=== PATIENT | male | born 1985 | race Hispanic/Latino ===

== ENCOUNTER 2017-08-16 16:27 | Observation (INO) | payer OTHER, SELFPAY ==
[2017-08-16] MEDS ORDERED: NA CHLORIDE 0.9% 1,000 ML ONE ×3 (17:53→21:16)
[2017-08-16] MEDS ORDERED: ACETAMINOPHEN 500 MG TAB ONE (17:53)
[2017-08-16 18:11] LABS: Absolute Lymphocytes (CBC) 1.8 K/uL (0.7-4.9); Absolute Monocytes 0.8 K/uL (0.1-1.3); Absolute Neutrophil 12.6 K/uL (1.8-8.0); Basophils % 0.3 % (0-1.3); Eosinophils % 0.1 % (0-4.4); Lymphocytes % 11.7 % (15.3-44.8); MCH 30.7 pg (27.0-35.0); MCV 88.2 fL (80-100); MPV 8.1 fL (7.6-11.3); Monocytes % 5.1 % (3.3-12.3); RBC Red Blood Cell Count 5.22 M/uL (4.33-5.43)
[2017-08-16 18:30] LABS: Potassium 3.4 mEq/L (3.6-5.0)
[2017-08-16 18:36] LABS: Bilirubin Direct 0.2 mg/dL (0-0.2); Bilirubin Total 1.1 mg/dL (0.3-1.2); Magnesium 2.4 mg/dL (1.8-2.5); Protein, Total 9.1 g/dL (6.0-8.3)
[2017-08-16 18:40] LABS: CKMB Creatine Kinase MB 3.9 ng/ml (0.3-4.0)
--- NOTE | 2017-08-16 20:14 | RAD REPORT ---
EXAM DESCRIPTION: CT - Stone Protocol - 08/16/2017 8:07 pm CLINICAL HISTORY: Flank pain. acute kidney failure COMPARISON: Abdomen Pelvis Wo Contrast dated 08/17/2015; Abdomen Pelvis W Contrast dated 6 TECHNIQUE: Axial images were obtained without oral or IV contrast. Lack of contrast limits solid org an and vascular assessment. The [id number] spans the entirety of the system partially obscuring uppermost abdomen and lung bases. Coronal reformatted images were obtained and reviewed. All CT scans are performed using dose optimization technique as appropriate and may include automated exposure control or mA/KV adjustment according to patient size. FINDINGS: The lower lung ramírez are clear. Cholecystectomy clips. Imaged portions of the liver and spleen show no suspicious findings on non-contrast imaging. The panc reas and adrenal glands are normal. No pathologic lymphadenopathy in the abdomen or pelvis. No urinary tract stones or obstructive uropathy. No bowel obstruction, free air, free fluid or abscess. Normal appendix noted. No significant bony abnormality. IMPRESSION: No urinary tract stones or obstructive uropathy.
--- NOTE | 2017-08-16 20:23 | ER ---
Nurse's Notes [facility] Name: Anupam Lopez Age: 31 yrs Sex: Male : 1985 Arrival Date: 08/16/2017 Time: 16:30 Bed 11 Private MD: None, None Diagnosis: Acute kidney failure Presentation: 08/16 17:03 Presenting complaint: Patient states: outside working when patient began experiencing aa5 cramping all over body. Transition of care: patient was not received from another setting of care. Onset of symptoms was August 16, 2017. Risk Assessment: Do you want to hurt yourself or someone else? Patient reports no desire to harm self or others. Initial Sepsis Screen: Does the patient meet any 2 criteria? No. Patient's initial sepsis screen is negative. Does the patient have a suspected source of infection? No. Patient's initial sepsis screen is negative. Care prior to arrival: None. 17:03 Method Of Arrival: Wheelchair aa5 17:03 Acuity: GONZALO 2 aa5 17:03 Note Patient reports feeling a little better and is drinking orange power aide during aa5 triage. Historical: - Allergies: 17:05 No Known Allergies; aa5 - Home Meds: 17:05 None [Active]; aa5 - PMHx: 17:05 None; aa5 - PSHx: 17:05 Cholecystectomy; aa5 - Immunization history:: Adult Immunizations up to date. - Social history:: Smoking status: Patient/guardian denies using tobacco. - Ebola Screening: : Patient denies exposure to infectious person Patient denies travel to an Ebola-affected area in the 21 days before illness onset. Screenin:30 Abuse screen: Denies threats or abuse. Denies injuries from another. Nutritional ss screening: No deficits noted. Tuberculosis screening: Never had TB. Fall Risk None identified. Assessment: 17:03 General: Appears distressed, uncomfortable, Behavior is cooperative, restless, Denies ss fever, fatigue, chills. General: Appears obese. Pain: Complains of pain in general body aches/ spasms Pain currently is 8 out of 10 on a pain scale. Neuro: Level of Consciousness is awake, alert, obeys commands, Oriented to person, place, time, situation. Cardiovascular: Capillary refill < 3 seconds is brisk in bilateral fingers. Respiratory: Airway is patent Respiratory effort is even, unlabored, Respiratory pattern is regular, symmetrical. GI: Reports bowel incontinence. Pt states, "my abdomen was cramping so bad that I just shit on myself." Patient currently denies nausea. Derm: Skin is diaphoretic, Skin is pink, Skin temperature is cool. Musculoskeletal: Circulation, motion, and sensation intact. Range of motion: Swelling absent. 18:30 Reassessment: Patient appears in no apparent distress at this time. Patient and/or ss family updated on plan of care and expected duration. Pain level reassessed. Patient states feeling better. Patient states symptoms have improved. 19:30 Neuro: Level of Consciousness is awake, alert, obeys commands, Oriented to person, bb place, time, situation. Cardiovascular: Heart tones S1 S2 present Capillary refill < 3 seconds Patient's skin is warm and dry. Respiratory: Airway is patent Respiratory effort is even, unlabored, Respiratory pattern is regular, Breath sounds are clear bilaterally. GI: Abdomen is obese, Bowel sounds present X 4 quads. Abd is soft and non tender X 4 quads. Derm: Skin is dry, Skin is normal, Skin temperature is cool. Musculoskeletal: Circulation, motion, and sensation intact. 20:30 Reassessment: Patient and/or family updated on plan of care and expected duration. Pain bb level reassessed. Patient is alert, oriented x 3, equal unlabored respirations, skin warm/dry/pink. pt instructed on need for admit verbalized understanding of and agrees to plan of care, family at bedside. 21:27 Reassessment: Patient and/or family updated on plan of care and expected duration. Pain bb level reassessed. Patient is alert, oriented x 3, equal unlabored respirations, skin warm/dry/pink. IV site patent, intact, fluids infusing, awaiting room assignment. 21:51 Reassessment: pt ambulated with steady gait to the bathroom. bb 22:24 Reassessment: pt c/o discomfort to IV site in L AC no swelling or erythema noted, D/Cd bb per pt request bleeding controlled pressure dressing applied, catheter intact. Vital Signs: 17:05 BP 99 / 55; Pulse 122; Resp 18; Temp 98.1(O); Pulse Ox 95% on R/A; Height 5 ft. 11 in. aa5 (180.34 cm); Pain 8/10; 17:58 Pulse 109; Resp 16; ss 19:06 Pulse 90; Resp 16; Pulse Ox 100% on R/A; Pain 0/10; ss 19:42 BP 131 / 69; Pulse 85; Resp 17; Temp 97.6(O); Pulse Ox 99% on R/A; mt 21:24 BP 136 / 78; Pulse 91; Resp 16 S; Temp 98(O); Pulse Ox 100% on R/A; Pain 0/10; bb 22:06 BP 158 / 78; Pulse 104; Resp 18; Temp 98.0(O); Pulse Ox 100% on R/A; Pain 0/10; fc ED Course: 16:30 Patient arrived in ED. sb2 16:30 None, None is Private Physician. sb2 16:30 Patient has correct armband on for positive identification. Bed in low position. Call ss light in reach. Pulse ox on. NIBP on. cardiac monitoring not available in exam room that patient is in. 17:04 Triage completed. aa5 17:05 Arm band placed on left wrist. aa5 17:14 Carlos Sterling PA is PHCP. cp 17:14 Josemanuel Abreu MD is Attending Physician. cp 17:48 Nava Alejandra, ARNULFO is Primary Nurse. ss 17:50 Inserted saline lock: 20 gauge in left antecubital area, using aseptic technique. dh3 18:00 EKG done, by switch technician. reviewed by Josemanuel Abreu MD. sm3 18:06 Initial lab(s) drawn, by va, sent to lab. by venipuncture 23G to right forearm. dh3 19:18 No provider procedures requiring assistance completed. ss 20:[address] via wheelchair. jj2 20:08 CT Stone Protocol In Process Unspecified. EDMS 20:22 Tacos Casillas MD is Hospitalizing Provider. cp 21:18 Urine Dipstick--Ancillary (enter results) Sent. bb 21:28 Patient admitted, IV remains in place. bb 22:25 Inserted saline lock: 20 gauge in right forearm, using aseptic technique. bb Administered Medications: 17:57 Drug: NS 0.9% 1000 ml Route: IV; Rate: 1 bolus; Site: left antecubital; ss 19:00 Follow up: IV Status: Completed infusion; IV Intake: 1000ml bb 17:57 Drug: Tylenol 1000 mg Route: PO; ss 21:17 Follow up: Response: No adverse reaction bb 19:37 Drug: NS 0.9% 1000 ml Route: IV; Rate: 1 bolus; Site: left antecubital; bb 21:17 Follow up: IV Status: Completed infusion; IV Intake: 1000ml bb 21:17 Drug: NS 0.9% 1000 ml Route: IV; Rate: 125 ml/hr; Site: left antecubital; bb 21:18 Follow up: IV Status: Infusion continued upon admission bb Intake: 19:00 IV: 1000ml; Total: 1000ml. bb 21:17 IV: 1000ml; Total: 2000ml. bb Output: 21:10 Urine: 175ml (Voided); Total: 175ml. bb 22:02 Urine: 250ml (Voided); Total: 425ml. bb Outcome: 20:23 Decision to Hospitalize by Provider. cp 21:28 Instructed on the need for admit. bb 22:11 Admitted to Med/surg accompanied by nurse, via wheelchair, room 415, with chart, Report fc called to Kalina ARREDONDO 22:11 Condition: good 22:25 Patient left the ED. bb Signatures: Dispatcher [employer] EDMS Darien Kaye jJeane Storey RN RN Rita Luis RN RN Maribeth Hansen RN RN aa5 Nava Alejandra RN RN ss Carlos Sterling PA PA cp Thompson, Moriah mt Herrera, Deanna 3 Eileen Marinelli 2 Lyn Caraballo 3 Corrections: (The following items were deleted from the chart) 17:07 17:03 Acuity: GONZALO 3 aa5 aa5
--- NOTE | 2017-08-16 20:23 | EDPHYS ---
Physician Documentation [facility] Name: Anupam Lopez Age: 31 yrs Sex: Male : 1985 Arrival Date: 08/16/2017 Time: 16:30 Bed 11 Private MD: None, None ED Physician Josemanuel Abrue HPI: 08/16 17:35 This 31 yrs old Male presents to ER via Wheelchair with complaints of Heat cp Exposure. 17:35 generalized body cramps. Onset: The symptoms/episode began/occurred today. cp 17:35 Severity of symptoms: in the emergency department the symptoms are unchanged. 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 Historical: - Allergies: 17:05 No Known Allergies; aa5 - Home Meds: 17:05 None [Active]; aa5 - PMHx: 17:05 None; aa5 - PSHx: 17:05 Cholecystectomy; aa5 - Immunization history:: Adult Immunizations up to date. - Social history:: Smoking status: Patient/guardian denies using tobacco. - Ebola Screening: : Patient denies exposure to infectious person Patient denies travel to an Ebola-affected area in the 21 days before illness onset. ROS: 17:35 Eyes: Negative for injury, pain, redness, and discharge. cp 17:35 Constitutional: Positive for chills, generalized cramping, Negative for body aches, fever, weight loss. 17:35 ENT: Negative for drainage from ear(s), ear pain, sore throat, difficulty swallowing, difficulty handling secretions. 17:35 Neck: Negative for pain with movement, pain at rest, stiffness, bony tenderness. 17:35 Cardiovascular: Negative for chest pain, edema, palpitations. 17:35 Respiratory: Negative for cough, shortness of breath, wheezing. 17:35 Abdomen/GI: Positive for diarrhea, Negative for vomiting, constipation, black/tarry stool, rectal bleeding, bowel incontinence. 17:35 : Negative for urinary symptoms. 17:35 Skin: Negative for cellulitis, rash. 17:35 Neuro: Negative for altered mental status, headache, weakness. 17:35 All other systems are negative. Exam: 17:42 Constitutional: The patient appears in no acute distress, alert, awake, cp non-diaphoretic, non-toxic, well developed, well nourished, uncomfortable. 17:42 Head/Face: Normocephalic, atraumatic. Eyes: Pupils equal round and reactive to light, cp extra-ocular motions intact. Lids and lashes normal. Conjunctiva and sclera are non-icteric and not injected. Cornea within normal limits. Periorbital areas with no swelling, redness, or edema. ENT: Nares patent. No nasal discharge, no septal abnormalities noted. Tympanic membranes are normal and external auditory canals are clear. Oropharynx with no redness, swelling, or masses, exudates, or evidence of obstruction, uvula midline. Mucous membranes moist. Neck: Trachea midline, no thyromegaly or masses palpated, and no cervical lymphadenopathy. Supple, full range of motion without nuchal rigidity, or vertebral point tenderness. No Meningismus. Chest/axilla: Normal chest wall appearance and motion. Nontender with no deformity. No lesions are appreciated. 17:42 Cardiovascular: Rate: tachycardic, Rhythm: regular, Pulses: Pulses are 2+ in right radial artery and left radial artery. Edema: is not appreciated, JVD: is not appreciated. 17:42 Respiratory: the patient does not display signs of respiratory distress, Respirations: normal, no use of accessory muscles, no retractions, no splinting, no tachypnea, labored breathing, is not present, Breath sounds: are clear throughout, no decreased breath sounds, no stridor, no wheezing. 17:42 Abdomen/GI: Inspection: obese Bowel sounds: active, all quadrants, Palpation: soft, in all quadrants, mild abdominal tenderness, in all quadrants, rebound tenderness, is not appreciated, voluntary guarding, is not appreciated, involuntary guarding, is not appreciated. 17:42 Back: pain, is absent, ROM is normal. 17:42 Musculoskeletal/extremity: Exam is negative for decreased range of motion, deformity, injury, Extremities: grossly normal except: noted in the right leg and left leg: pain, tenderness. 17:42 Skin: cellulitis, is not appreciated, no rash present. 17:42 Neuro: Orientation: to person, place \T\ time. Mentation: is normal, Cerebellar function: is grossly normal, Motor: moves all fours, strength is normal, Sensation: no obvious gross deficits. 17:50 ECG was reviewed by the Attending Physician. cp Vital Signs: 17:05 BP 99 / 55; Pulse 122; Resp 18; Temp 98.1(O); Pulse Ox 95% on R/A; Height 5 ft. 11 in. aa5 (180.34 cm); Pain 8/10; 17:58 Pulse 109; Resp 16; ss 19:06 Pulse 90; Resp 16; Pulse Ox 100% on R/A; Pain 0/10; ss 19:42 BP 131 / 69; Pulse 85; Resp 17; Temp 97.6(O); Pulse Ox 99% on R/A; mt 21:24 BP 136 / 78; Pulse 91; Resp 16 S; Temp 98(O); Pulse Ox 100% on R/A; Pain 0/10; bb 22:06 BP 158 / 78; Pulse 104; Resp 18; Temp 98.0(O); Pulse Ox 100% on R/A; Pain 0/10; fc MDM: 17:15 Patient medically screened. cp 18:00 Differential Diagnosis electrolyte abnormality, cardiac arrythmia, acute renal failure, cp dehydration. 20:18 Data reviewed: vital signs, nurses notes, lab test result(s), EKG, radiologic studies, cp CT scan. 20:18 Test interpretation: by ED physician or midlevel provider: ECG. Response to treatment: cp the patient's symptoms have mildly improved after treatment, and as a result, I will admit patient. 20:20 Physician consultation: Tacos Casillas MD was called at 20:20, was contacted at 20:20, regarding admission, to the medical/surgical unit. patient's condition. 08/16 17:32 Order name: Basic Metabolic Panel; Complete Time: 19:19 cp 08/16 17:32 Order name: CBC with Diff; Complete Time: 19:19 cp 08/16 17:32 Order name: Ckmb; Complete Time: 19:19 cp 08/16 17:32 Order name: CPK; Complete Time: 19:19 cp 08/16 17:32 Order name: LFT's; Complete Time: 19:19 cp 08/16 17:32 Order name: Magnesium; Complete Time: 19:19 cp 08/16 17:32 Order name: Troponin (emerg Dept Use Only); Complete Time: 19:19 cp 08/16 19:38 Order name: CT Stone Protocol; Complete Time: 20:17 cp 08/16 20:43 Order name: Urine Dipstick--Ancillary (enter results) eb 08/16 21:52 Order name: Urine Dipstick-Ancillary; Complete Time: 15:21 EDMS 08/16 17:32 Order name: EKG; Complete Time: 17:33 cp 08/16 17:32 Order name: EKG - Nurse/Tech; Complete Time: 17:57 cp 08/16 17:32 Order name: IV Saline Lock; Complete Time: 17:58 cp 08/16 17:32 Order name: Labs collected and sent; Complete Time: 18:11 cp 08/16 17:32 Order name: O2 Per Protocol; Complete Time: 17:58 cp 08/16 17:32 Order name: O2 Sat Monitoring; Complete Time: 17:58 cp 08/16 19:43 Order name: NPO; Complete Time: 20:46 cp EC:50 Rate is 120 beats/min. Rhythm is regular. NE interval is normal. QRS interval is cp normal. QT interval is normal. No ST changes noted. Interpreted by me. Reviewed by me. Administered Medications: 17:57 Drug: NS 0.9% 1000 ml Route: IV; Rate: 1 bolus; Site: left antecubital; ss 19:00 Follow up: IV Status: Completed infusion; IV Intake: 1000ml bb 17:57 Drug: Tylenol 1000 mg Route: PO; ss 21:17 Follow up: Response: No adverse reaction bb 19:37 Drug: NS 0.9% 1000 ml Route: IV; Rate: 1 bolus; Site: left antecubital; bb 21:17 Follow up: IV Status: Completed infusion; IV Intake: 1000ml bb 21:17 Drug: NS 0.9% 1000 ml Route: IV; Rate: 125 ml/hr; Site: left antecubital; bb 21:18 Follow up: IV Status: Infusion continued upon admission bb Disposition: 08/16/17 20:23 Hospitalization ordered by Tacos Casillas for Observation. Preliminary diagnosis is Acute kidney failure. - Bed requested for Telemetry/MedSurg (observation). - Status is Observation. bb - Condition is Stable. - Problem is new. - Symptoms have improved. UTI on Admission? No Addendum: 08/20/2017 07:09 Co-signature as Attending Physician, Josemanuel Abreu MD I agree with the assessment and k dr plan of care. Signatures: Dispatcher [employer] EDMarcela Rucker RN Josemanuel Castillo MD MD [facility] Rita Luis RN RN bb Maribeth Hansen, RN ARNULFO aa5 Nava Alejandra RN RN ss Carlos Sterling, PA PA cp Corrections: (The following items were deleted from the chart) 08/16 20:46 19:38 Mack ordered. cp 21:53 20:23 Hospitalization Ordered by Tacos Casillas MD for Observation. Preliminary aj diagnosis is Acute kidney failure. Bed requested for Telemetry/MedSurg (observation). Status is Observation. Condition is Stable. Problem is new. Symptoms have improved. UTI on Admission? No. cp 22:25 21:53 08/16/2017 20:23 Hospitalization Ordered by Tacos Casillas MD for Observation. bb Preliminary diagnosis is Acute kidney failure. Bed requested for Telemetry/MedSurg (observation). Status is Observation. Condition is Stable. Problem is new. Symptoms have improved. UTI on Admission? No. aj
--- NOTE | 2017-08-16 21:02 | P.HP ---
Certification for Inpatient Patient admitted to: Observation With expected LOS: <2 Midnights Practitioner: I am a practitioner with admitting privileges, knowledge of patient current condition, hospital course, and medical plan of care. 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 Last night when he got home was really tired and start feeling cramps in his legs. This morning he felt worse and finally decided to come to ED for evaluation. He denied fever or chills, nausea or vomiting but he has had diarrhea. He recognized that did not drink the amount of water that he usually do. At arrival he was tachycardic, BP borderline low. Lab work remarkable for leukocytosis, elevated creatinine, hyponatreamia, hypokalemia and abnormal transaminases. Allergies No Known Allergies Allergy (Verified 08/05/15 11:45) Home Medications: NK [No Home Meds] 08/16/15 - Past Medical/Surgical History Diabetic: No -: obesity Past Surgical History: Reviewed- Non-Contributory -: Lap frantz - Family History Family History: Reviewed- Non-Contributory - Social History Smoking Status: Never smoker Alcohol use: No CD- Drugs: No Caffeine use: Yes Place of Residence: Home Review of Systems 10-point ROS is otherwise unremarkable Physical Examination - Physical Exam General: Alert, In no apparent distress HEENT: Atraumatic, PERRLA, Mucous membr. moist/pink, EOMI, Sclerae nonicteric Neck: Supple, 2+ carotid pulse no bruit, No LAD, Without JVD or thyroid abnormality Respiratory: Clear to auscultation bilaterally, Normal air movement Cardiovascular: Regular rate/rhythm, Normal S1 S2 Gastrointestinal: Normal bowel sounds, No tenderness Musculoskeletal: No tenderness Integumentary: No rashes Neurological: Normal speech, Normal strength at 5/5 x4 extr, Normal tone, Normal affect Lymphatics: No axilla or inguinal lymphadenopathy - Studies Laboratory Data (last 24 hrs) 08/16/17 18:04: WBC 15.2 H, Hgb 16.0, Hct 46.0, Plt Count 300 08/16/17 18:04: Sodium 130 L, Potassium 3.4 L, BUN 24 H, Creatinine 2.90 H, Glucose 159 H, Magnesium 2.4, Total Bilirubin 1.1, AST 56 H, ALT 81 H, Alkaline Phosphatase 79 Assessment and Plan - Problems (Diagnosis) (1) Acute renal injury Current Visit: Yes Status: Acute (2) Hyponatremia Current Visit: Yes Status: Acute (3) Hypokalemia Current Visit: Yes Status: Acute (4) Dehydration Current Visit: Yes Status: Acute (5) Obesity Current Visit: Yes Status: Acute Qualifiers: Obesity type: unspecified obesity type Obesity classification: unspecified obesity classification Serious obesity comorbidity presence: unspecified whether serious comorbidity present Qualified Code(s): E66.9 - Obesity, unspecified (6) Heat exhaustion Current Visit: Yes Status: Acute Qualifiers: Encounter type: initial encounter Qualified Code(s): T67.5XXA - Heat exhaustion, unspecified, initial encounter - Plan The patient will be admitted to the hospital due to acute renal injury, electrolyte disturbance, transaminitis secondary to volume depletion in context of heat exahaustion. He already feels better after fluid infusion. Will continue aggressive volume replacement, check new lab work in AM. likely D/C home tomorrow if continue improving. - Advance Directives Does patient have a Living Will: No Does patient have a Durable POA for Healthcare: No - Code Status/Comfort Care Code Status Assessed: Yes Code Status: Full Code
[2017-08-16 21:52] LABS: Urine Blood 1+ (NEG); Urine Glucose NEGATIVE (NEG); Urine Protein 1+ (NEG); Urine pH 5.5 (5.0-7.0)
[2017-08-16] MEDS ORDERED: ACETAMINOPHEN 500 MG TAB PO PRN (22:39)
[2017-08-16] MEDS ORDERED: ONDANSETRON 4 MG/2 ML VIAL IV PRN (22:39)
[2017-08-16] MEDS: NA CHLORIDE 0.9% 1,000 ML IV SCH (22:39)
[2017-08-17 05:12] LABS: Absolute Lymphocytes (CBC) 2.3 K/uL (0.7-4.9); Absolute Monocytes 0.6 K/uL (0.1-1.3); Absolute Neutrophil 4.4 K/uL (1.8-8.0); Basophils % 0.3 % (0-1.3); Eosinophils % 0.6 % (0-4.4); Hematocrit 39.2 % (39.6-49.0); Lymphocytes % 31.1 % (15.3-44.8); MCV 87.1 fL (80-100); MPV 8.1 fL (7.6-11.3); Monocytes % 8.7 % (3.3-12.3)
[2017-08-17] MEDS: NA CHLORIDE 0.9% 1,000 ML IV SCH ×2 (05:18→09:31)
[2017-08-17 05:50] LABS: Albumin 3.7 g/dL (3.2-5.5); Bilirubin Total 0.8 mg/dL (0.3-1.2); Potassium 3.5 mEq/L (3.6-5.0); Protein, Total 6.7 g/dL (6.0-8.3)
[2017-08-17] MEDS ORDERED: POTASSIUM 25 MEQ EFFERV TAB PO ONE (05:56)
--- NOTE | 2017-08-17 06:13 | EKG ---
Test Date: 2017-08-16 Test Time: 17:45:05 Seafood Preparer: MANSOOR MEASUREMENT RESULTS: Intervals: Rate: 120 VA: 146 QRSD: 92 QT: 316 QTc: 446 [place]: P: 50 VA: 146 QRS: 69 T: 11 INTERPRETIVE STATEMENTS: Sinus tachycardia Otherwise normal ECG No previous ECG available for comparison Electronically Signed On 08-17-17 06:12:46 CDT by Yves Noriega
[2017-08-17] MEDS ORDERED: ENOXAPARIN 40 MG/0.4 ML SQ SCH (09:00)
--- NOTE | 2017-08-17 13:21 | P.SSS ---
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 Last night when he got home was really tired and start feeling cramps in his legs. This morning he felt worse and finally decided to come to ED for evaluation. He denied fever or chills, nausea or vomiting but he has had diarrhea. He recognized that did not drink the amount of water that he usually do. At arrival he was tachycardic, BP borderline low. Lab work remarkable for leukocytosis, elevated creatinine, hyponatreamia, hypokalemia and abnormal transaminases. Allergies No Known Allergies Allergy (Verified 08/16/17 22:07) Home Medications: NK [No Home Meds] 08/16/15 - Past Medical/Surgical History Has patient received pneumonia vaccine in the past: No Diabetic: No -: obesity -: Lap frantz - Family History Family History: Reviewed- Non-Contributory - Family History Mother -: Diabetes - Social History Smoking Status: Never smoker Alcohol use: No CD- Drugs: No Caffeine use: Yes Place of Residence: Home Review of Systems General: As per HPI Physical Examination - Vital Signs Temperature: 97.0 F Blood Pressure: 146/85 Pulse: 86 Respirations: 18 Pulse Ox (%): 97 - Physical Exam General: Alert, In no apparent distress HEENT: Atraumatic, PERRLA, Mucous membr. moist/pink, EOMI, Sclerae nonicteric Neck: Supple, 2+ carotid pulse no bruit, No LAD, Without JVD or thyroid abnormality Respiratory: Clear to auscultation bilaterally, Normal air movement Cardiovascular: Regular rate/rhythm, Normal S1 S2 Gastrointestinal: Normal bowel sounds, No tenderness Musculoskeletal: No tenderness Integumentary: No rashes Neurological: Normal gait, Normal speech, Normal strength at 5/5 x4 extr, Normal tone, Normal affect Lymphatics: No axilla or inguinal lymphadenopathy - Studies Laboratory Data (last 24 hrs) 08/16/17 18:04: WBC 15.2 H, Hgb 16.0, Hct 46.0, Plt Count 300 08/16/17 18:04: Sodium 130 L, Potassium 3.4 L, BUN 24 H, Creatinine 2.90 H, Glucose 159 H, Magnesium 2.4, Total Bilirubin 1.1, AST 56 H, ALT 81 H, Alkaline Phosphatase 79 - Diagnosis (Problem(s)) (1) Acute renal injury Status: Resolved (2) Dehydration Status: Resolved (3) Heat exhaustion Status: Resolved Qualifiers: Encounter type: initial encounter Qualified Code(s): T67.5XXA - Heat exhaustion, unspecified, initial encounter (4) Hypokalemia Status: Resolved (5) Hyponatremia Status: Resolved (6) Obesity Status: Chronic Qualifiers: Obesity type: unspecified obesity type Obesity classification: unspecified obesity classification Serious obesity comorbidity presence: unspecified whether serious comorbidity present Qualified Code(s): E66.9 - Obesity, unspecified Treatment Summary: Overall pt remained stable while here in the hospital. Pt was admitted to the hospital for heat exhaution and was started on IV fluids and was discharge home once condition improved after his IV fluids. - Disposition Disposition: ROUTINE DISCHARGE Condition: GOOD Patient Discharge Instructions: please f.u with PCP in 1 to 2 weeks post discharge. no new medication Diet: Regular Activity: Ad humphrey
== END 2017-08-17 12:14 | disposition home or self-care (01) ==
LOC: ER 16:27 → ERHOLD 20:23 → 4TH 22:16
PROVIDERS: ADMIT Internal Medicine; ATTEND Family Medicine
DX: N17.9 Acute kidney failure, unspecified (principal); E87.1 Hypo-osmolality and hyponatremia; E86.0 Dehydration; E87.6 Hypokalemia; T67.5XXA Heat exhaustion, unspecified, initial encounter; X58.XXXA Exposure to other specified factors, initial encounter; Y92.019 Unspecified place in single-family (private) house as the place of occurrence of the external cause; E66.9 Obesity, unspecified
CPT/HCPCS: 36415; 74176; 76377; 80048; 80053; 80076; 81003; 82550; 82553; 83735; 84484; 85025; 93005; 96360; 96361; 99285; G0378; J1650; J7030

== ENCOUNTER 2017-10-20 17:41 | Emergency (ER) | payer OTHER ==
[2017-10-20] MEDS ORDERED: ONDANSETRON 4 MG/2 ML VIAL ONE (18:27)
[2017-10-20] MEDS ORDERED: NA CHLORIDE 0.9% 1,000 ML ONE (18:27)
[2017-10-20 18:30] LABS: Absolute Lymphocytes (CBC) 1.8 K/uL (0.7-4.9); Absolute Monocytes 0.6 K/uL (0.1-1.3); Absolute Neutrophil 4.8 K/uL (1.8-8.0); Basophils % 0.7 % (0-1.3); Eosinophils % 1.8 % (0-4.4); Hematocrit 42.1 % (39.6-49.0); Lymphocytes % 24.8 % (15.3-44.8); MCH 31.2 pg (27.0-35.0); MCV 88.8 fL (80-100); MPV 8.3 fL (7.6-11.3); Monocytes % 7.6 % (3.3-12.3); RBC Red Blood Cell Count 4.74 M/uL (4.33-5.43)
[2017-10-20 18:45] LABS: ALT/SGPT 55 U/L (12-78); AST/SGOT 30 U/L (15-37); Alkaline Phosphatase 80 U/L (45-117); BUN Blood Urea Nitrogen 12 mg/dL (7-18); Bicarbonate 27 mmol/L (21-32); Bilirubin Direct 0.1 mg/dL (0-0.2); Bilirubin Total 0.6 mg/dL (0.2-1.0); Glucose Level 98 mg/dL (74-106); Lipase 160 U/L (73-393); Potassium 3.4 mmol/L (3.5-5.1); Protein, Total 8.2 g/dL (6.4-8.2); Sodium Level 140 mmol/L (136-145)
[2017-10-20 19:40] LABS: Urine Blood NEGATIVE (NEG); Urine Glucose TRACE (NEG); Urine Protein TRACE (NEG); Urine Specific Gravity 1.025 (1.005-1.030)
[2017-10-20 19:43] LABS: Calcium Oxalate Crystals- Ur FEW (NONE SEEN); Urine Bacteria <20 /HPF (NONE SEEN); Urine Culture Reflex Order REFLEXED; Urine Mucus SLIGHT /HPF (NONE SEEN); Urine RBC <5 /HPF (NONE SEEN)
--- NOTE | 2017-10-20 20:43 | EDPHYS ---
Physician Documentation [facility] Name: Anupam Lopez Age: 31 yrs Sex: Male : 1985 Arrival Date: 10/20/2017 Time: 17:44 Bed 13 Private MD: None, None ED Physician Carlos Langley HPI: 10/20 18:07 This 31 yrs old Male presents to ER via Ambulatory with complaints of snw Vomiting/Diarrhea, Rash. 18:07 The patient presents to the emergency department with nausea, vomiting, diarrhea. snw Onset: The symptoms/episode began/occurred suddenly, 3 day(s) ago, and became persistent. Possible causes: unknown. Associated signs and symptoms: Pertinent positives: rash. Severity of symptoms: At their worst the symptoms were moderate in the emergency department the symptoms are unchanged. The patient has not experienced similar symptoms in the past. It is unknown whether or not the patient has recently seen a physician. 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 Historical: - Allergies: 17:49 No Known Allergies; aj - Home Meds: 17:49 None [Active]; aj - PMHx: 17:49 None; aj - PSHx: 17:49 Cholecystectomy; aj - Immunization history:: Adult Immunizations up to date. - Social history:: Smoking status: Patient/guardian denies using tobacco. - Ebola Screening: : Patient negative for fever greater than or equal to 101.5 degrees Fahrenheit, and additional compatible Ebola Virus Disease symptoms Patient denies exposure to infectious person Patient denies travel to an Ebola-affected area in the 21 days before illness onset No symptoms or risks identified at this time. ROS: 18:06 Constitutional: Negative for fever, chills, and weight loss, Eyes: Negative for injury, snw pain, redness, and discharge, ENT: Negative for injury, pain, and discharge, Neck: Negative for injury, pain, and swelling, Cardiovascular: Negative for chest pain, palpitations, and edema, Respiratory: Negative for shortness of breath, cough, wheezing, and pleuritic chest pain, Back: Negative for injury and pain, : Negative for injury, bleeding, discharge, and swelling, MS/Extremity: Negative for injury and deformity, Neuro: Negative for headache, weakness, numbness, tingling, and seizure, Psych: Negative for depression, anxiety, suicide ideation, homicidal ideation, and hallucinations. 18:06 Abdomen/GI: Positive for nausea, vomiting, and diarrhea. 18:06 Skin: Positive for rash. 18:06 Neuro: Positive for dizziness. Exam: 18:04 Head/Face: Normocephalic, atraumatic. Eyes: Pupils equal round and reactive to light, snw extra-ocular motions intact. Lids and lashes normal. Conjunctiva and sclera are non-icteric and not injected. Cornea within normal limits. Periorbital areas with no swelling, redness, or edema. ENT: Nares patent. No nasal discharge, no septal abnormalities noted. Tympanic membranes are normal and external auditory canals are clear. Oropharynx with no redness, swelling, or masses, exudates, or evidence of obstruction, uvula midline. Mucous membranes moist. Neck: Trachea midline, no thyromegaly or masses palpated, and no cervical lymphadenopathy. Supple, full range of motion without nuchal rigidity, or vertebral point tenderness. No Meningismus. Chest/axilla: Normal chest wall appearance and motion. Nontender with no deformity. No lesions are appreciated. Cardiovascular: Regular rate and rhythm with a normal S1 and S2. No gallops, murmurs, or rubs. Normal PMI, no JVD. No pulse deficits. Respiratory: Lungs have equal breath sounds bilaterally, clear to auscultation and percussion. No rales, rhonchi or wheezes noted. No increased work of breathing, no retractions or nasal flaring. Abdomen/GI: Soft, non-tender, with normal bowel sounds. No distension or tympany. No guarding or rebound. No evidence of tenderness throughout. Back: No spinal tenderness. No costovertebral tenderness. Full range of motion. MS/ Extremity: Pulses equal, no cyanosis. Neurovascular intact. Full, normal range of motion. Neuro: Awake and alert, GCS 15, oriented to person, place, time, and situation. Cranial nerves II-XII grossly intact. Motor strength 5/5 in all extremities. Sensory grossly intact. Cerebellar exam normal. Normal gait. Psych: Awake, alert, with orientation to person, place and time. Behavior, mood, and affect are within normal limits. 18:04 Constitutional: The patient appears alert, anxious, obese. 18:04 Skin: Appearance: rash can be described as raised, generalized, lower extremities with darkened coloration and some discoloration, recurrent cellulitis. Vital Signs: 17:49 BP 144 / 74; Pulse 95; Resp 15; Temp 98.0; Pulse Ox 98% on R/A; Weight 158.3 kg; Height aj 5 ft. 11 in. (180.34 cm); 19:31 BP 142 / 68; Pulse 85; Resp 18; Pulse Ox 99% ; ea 20:26 BP 146 / 91; Pulse 79; Resp 18; Pulse Ox 98% ; ea 21:32 BP 149 / 74; Pulse 79; Resp 18; Temp 97.5; Pulse Ox 98% on R/A; Pain 0/10; ea 17:49 Body Mass Index 48.68 (158.30 kg, 180.34 cm) aj MDM: 17:54 Patient medically screened. danae 20:29 Data reviewed: vital signs, nurses notes. Data interpreted: Pulse oximetry: on room air snw is 99 %. Interpretation: normal. Counseling: I had a detailed discussion with the patient and/or guardian regarding: the historical points, exam findings, and any diagnostic results supporting the discharge/admit diagnosis, the presence of at least one elevated blood pressure reading (>120/80) during this emergency department visit, lab results, the need for outpatient follow up. Response to treatment: the patient's symptoms have markedly improved after treatment, patient is well hydrated. Still c/o mild headache, and as a result, I will give Toradol, reassess. Discharge pt with rx for nausea/vomiting. Give work excuse and request pt remain well hydrated and out of the heat x 2 days.. 10/20 18:00 Order name: Basic Metabolic Panel; Complete Time: 18:51 snw 10/20 18:00 Order name: CBC with Diff; Complete Time: 18:42 snw 10/20 18:00 Order name: Hepatic Function; Complete Time: 18:51 snw 10/20 18:00 Order name: Lipase; Complete Time: 18:51 snw 10/20 18:00 Order name: Urine Microscopic Only; Complete Time: 19:44 snw 10/20 18:00 Order name: Strep; Complete Time: 18:42 snw 10/20 18:00 Order name: IV Saline Lock; Complete Time: 18:18 snw 10/20 18:40 Order name: Throat Culture EDMS 10/20 19:35 Order name: Urine Dipstick--Ancillary (enter results); Complete Time: 19:44 ms 10/20 19:44 Order name: Urine Culture [facility] 10/20 18:00 Order name: Labs collected and sent; Complete Time: 18:18 snw 10/20 18:00 Order name: Urine Dipstick-Ancillary (obtain specimen); Complete Time: 19:34 snw 10/20 20:12 Order name: PO challenge; Complete Time: 21:29 snw Administered Medications: 18:31 Drug: NS 0.9% 1000 ml Route: IV; Rate: 1000 ml; Site: right hand; la1 20:00 Follow up: Response: No adverse reaction; IV Status: Completed infusion ea 18:31 Drug: Zofran 4 mg Route: PO; la1 19:34 Follow up: Response: No adverse reaction; Marked relief of symptoms ea 20:30 Drug: Potassium Effervescent Tablet 25 mEq Route: PO; ea 21:35 Follow up: Response: No adverse reaction ea 21:20 Drug: TORadol 30 mg Route: IVP; Site: right antecubital; ea 21:35 Follow up: Response: Medication administered at discharge. ea Disposition: 10/21 09:21 Co-signature as Attending Physician, Carlos Langley MD I agree with the assessment and danae plan of care. Disposition: 10/20/17 20:42 Discharged to Home. Impression: Vomiting, unspecified, Diarrhea, unspecified, Heat fatigue, transient. - Condition is Stable. - Discharge Instructions: Food Choices to Help Relieve Diarrhea, Adult, Diarrhea, Adult, Nausea and Vomiting, Adult, Rehydration, Adult. - Prescriptions for Zofran 4 mg Oral Tablet - take 1 tablet by ORAL route every 12 hours As needed; 20 tablet. - Work release form, Medication Reconciliation Form, Thank You Letter, Antibiotic Education, Prescription Opioid Use form. - Follow up: Private Physician; When: 2 - 3 days; Reason: Recheck today's complaints, Continuance of care, Re-evaluation by your physician. Follow up: Emergency Department; When: As needed; Reason: Worsening of condition. Signatures: Dispatcher [employer] Marcela Ryder RN RN aj Anderson, Corey, MD MD cha Therrien, Shelly, BLOW TORCH OPERATOR-C BLOW TORCH OPERATOR-Csnw Robin Martinez RN RN arnaldo Abbey Lima RN RN ea Corrections: (The following items were deleted from the chart) 10/20 21:34 20:42 10/20/2017 20:42 Discharged to Home. Impression: Vomiting, unspecified; Diarrhea, ea unspecified; Heat fatigue, transient. Condition is Stable. Forms are Medication Reconciliation Form, Thank You Letter, Antibiotic Education, Prescription Opioid Use. Follow up: Private Physician; When: 2 - 3 days; Reason: Recheck today's complaints, Continuance of care, Re-evaluation by your physician. Follow up: Emergency Department; When: As needed; Reason: Worsening of condition. snw
--- NOTE | 2017-10-20 20:43 | ER ---
Nurse's Notes [facility] Name: Anupam Lopez Age: 31 yrs Sex: Male : 1985 Arrival Date: 10/20/2017 Time: 17:44 Bed 13 Private MD: None, None Diagnosis: Vomiting, unspecified;Diarrhea, unspecified;Heat fatigue, transient Presentation: 10/20 17:47 Presenting complaint: Patient states: N/V/D for 3 days. Itchy rash to bilateral hands, aj antecubital area, and lower legs for 1 week. Transition of care: patient was not received from another setting of care. Onset of symptoms was October 17, 2017. Risk Assessment: Do you want to hurt yourself or someone else? Patient reports no desire to harm self or others. Initial Sepsis Screen: Does the patient meet any 2 criteria? No. Patient's initial sepsis screen is negative. Does the patient have a suspected source of infection? No. Patient's initial sepsis screen is negative. Care prior to arrival: None. 17:47 Method Of Arrival: Ambulatory 17:47 Acuity: GONZALO 3 aj Triage Assessment: 17:49 General: Appears in no apparent distress. comfortable, Behavior is calm, cooperative, aj appropriate for age. Pain: Denies pain. Neuro: Level of Consciousness is awake, alert, obeys commands, Oriented to person, place, time, situation, Appropriate for age. Respiratory: Airway is patent Respiratory effort is even, unlabored, Respiratory pattern is regular, symmetrical. GI: Reports diarrhea, nausea, vomiting. Derm: Skin is intact, is healthy with good turgor, Skin is pink, warm \T\ dry. normal, Rash noted that is itchy, on right hand, left hand, right arm, left arm, right leg and left leg. Historical: - Allergies: 17:49 No Known Allergies; aj - Home Meds: 17:49 None [Active]; aj - PMHx: 17:49 None; aj - PSHx: 17:49 Cholecystectomy; aj - Immunization history:: Adult Immunizations up to date. - Social history:: Smoking status: Patient/guardian denies using tobacco. - Ebola Screening: : Patient negative for fever greater than or equal to 101.5 degrees Fahrenheit, and additional compatible Ebola Virus Disease symptoms Patient denies exposure to infectious person Patient denies travel to an Ebola-affected area in the 21 days before illness onset No symptoms or risks identified at this time. Screenin:18 Abuse screen: Denies threats or abuse. Nutritional screening: No deficits noted. la1 Tuberculosis screening: No symptoms or risk factors identified. Fall Risk None identified. Assessment: 18:17 General: Appears uncomfortable, Behavior is calm, cooperative. Pain: Denies pain. la1 Neuro: Level of Consciousness is awake, alert, obeys commands, Oriented to person, place, time, situation. Cardiovascular: Capillary refill < 3 seconds Patient's skin is warm and dry. Respiratory: Airway is patent Respiratory effort is even, unlabored, Respiratory pattern is regular, symmetrical, Breath sounds are clear bilaterally. GI: Abdomen is obese, Bowel sounds present X 4 quads. Reports nausea, vomiting. : No signs and/or symptoms were reported regarding the genitourinary system. 19:28 General: Appears in no apparent distress. Behavior is calm, cooperative, appropriate ea for age. Pain: Denies pain. Neuro: Level of Consciousness is awake, alert, obeys commands, Oriented to person, place, time, situation. Cardiovascular: Heart tones S1 S2 present Patient's skin is warm and dry. Respiratory: Airway is patent Respiratory effort is even, unlabored, Respiratory pattern is regular, symmetrical, Breath sounds are clear bilaterally. GI: Abdomen is obese, Bowel sounds present X 4 quads. : No signs and/or symptoms were reported regarding the genitourinary system. Derm: Skin is pink, warm \T\ dry. 20:50 Reassessment: Patient and/or family updated on plan of care and expected duration. Pain ea level reassessed. Patient is alert, oriented x 3, equal unlabored respirations, skin warm/dry/pink. 21:30 Reassessment: Patient and/or family updated on plan of care and expected duration. Pain ea level reassessed. Patient is alert, oriented x 3, equal unlabored respirations, skin warm/dry/pink. Discharge instructions given to patient, verbalized the understanding of instruction. Patient states feeling better. Patient states symptoms have improved. Vital Signs: 17:49 BP 144 / 74; Pulse 95; Resp 15; Temp 98.0; Pulse Ox 98% on R/A; Weight 158.3 kg; Height aj 5 ft. 11 in. (180.34 cm); 19:31 BP 142 / 68; Pulse 85; Resp 18; Pulse Ox 99% ; ea 20:26 BP 146 / 91; Pulse 79; Resp 18; Pulse Ox 98% ; ea 21:32 BP 149 / 74; Pulse 79; Resp 18; Temp 97.5; Pulse Ox 98% on R/A; Pain 0/10; ea 17:49 Body Mass Index 48.68 (158.30 kg, 180.34 cm) ED Course: 17:44 Patient arrived in ED. mr 17:45 None, None is Private Physician. mr 17:48 Triage completed. aj 17:49 Arm band placed on left wrist. Patient placed in an exam room. aj 17:54 Carlos Langley MD is Attending Physician. danae 17:54 [facility] snw 18:01 Robin Martinez RN is Primary Nurse. la1 18:17 No provider procedures requiring assistance completed. Inserted saline lock: 22 gauge la1 in right hand, using aseptic technique. Blood collected. 18:18 Call light in reach. Side rails up X 1. la1 21:32 IV discontinued, intact, bleeding controlled, No redness/swelling at site. Pressure ea dressing applied. Administered Medications: 18:31 Drug: NS 0.9% 1000 ml Route: IV; Rate: 1000 ml; Site: right hand; la1 20:00 Follow up: Response: No adverse reaction; IV Status: Completed infusion ea 18:31 Drug: Zofran 4 mg Route: PO; la1 19:34 Follow up: Response: No adverse reaction; Marked relief of symptoms ea 20:30 Drug: Potassium Effervescent Tablet 25 mEq Route: PO; ea 21:35 Follow up: Response: No adverse reaction ea 21:20 Drug: TORadol 30 mg Route: IVP; Site: right antecubital; ea 21:35 Follow up: Response: Medication administered at discharge. ea Outcome: 20:42 Discharge ordered by . snw 21:31 Discharged to home ambulatory, with family. ea 21:31 Condition: improved 21:31 Discharge instructions given to patient, Instructed on discharge instructions, follow up and referral plans. medication usage, Demonstrated understanding of instructions, follow-up care, medications, Prescriptions given X 1. 21:34 Patient left the ED. ea Signatures: Marcela Sultana, RN RN Carlos Urban MD MD cha Therrien, Shelly, CORK TIPPER-C CORK TIPPER-Csnw Melissa Iglesias mr Michelle, Robin, RN RN [email or web address] Abbey Lima RN RN ea
[2017-10-20] MEDS ORDERED: KETOROLAC 30 MG/ML INJ ONE (21:14)
[2017-10-20] MEDS ORDERED: POTASSIUM 25 MEQ EFFERV TAB ONE (21:14)
== END 2017-10-20 21:34 | disposition home or self-care (01) ==
LOC: ER 17:41
DX: R11.10 Vomiting, unspecified (principal); R19.7 Diarrhea, unspecified; T67.6XXA Heat fatigue, transient, initial encounter; X58.XXXA Exposure to other specified factors, initial encounter; Y93.9 Activity, unspecified; Y92.9 Unspecified place or not applicable
CPT/HCPCS: 36415; 80048; 80076; 81003; 81015; 83690; 85025; 87070; 87081; 87086; 87088; 96361; 96374; 99284; J2405; J7030

== ENCOUNTER 2017-10-30 16:43 | Emergency (ER) | payer OTHER ==
--- NOTE | 2017-10-30 17:14 | ER ---
Nurse's Notes [facility] Name: Anupam Lopez Age: 31 yrs Sex: Male : 1985 Arrival Date: 10/30/2017 Time: 16:46 Bed 19 Private MD: None, None Diagnosis: Viral upper respiratory infection;Otalgia and effusion of ear Presentation: 10/30 16:52 Presenting complaint: Patient states: N/V/D that has improved since patient's last ER aj visit 1 week ago. Also reports nasal congestion, bloody nasal discharge, ear pain, and sore throat for 3 days. Transition of care: patient was not received from another setting of care. Onset of symptoms was October 27, 2017. Risk Assessment: Do you want to hurt yourself or someone else? Patient reports no desire to harm self or others. Initial Sepsis Screen: Does the patient meet any 2 criteria? No. Patient's initial sepsis screen is negative. Does the patient have a suspected source of infection? No. Patient's initial sepsis screen is negative. Care prior to arrival: None. 16:52 Method Of Arrival: Ambulatory 16:52 Acuity: GONZALO 4 Triage Assessment: 16:53 General: Appears in no apparent distress. comfortable, Behavior is calm, cooperative, aj appropriate for age. Pain: Denies pain. EENT: Reports nasal congestion nasal discharge pain when swallowing. Neuro: Level of Consciousness is awake, alert, obeys commands, Oriented to person, place, time, situation, Appropriate for age. Respiratory: Airway is patent Respiratory effort is even, unlabored, Respiratory pattern is regular, symmetrical. Derm: Skin is intact, is healthy with good turgor, Skin is pink, warm \T\ dry. normal. Historical: - Allergies: 16:53 No Known Allergies; aj - Home Meds: 16:53 None [Active]; aj - PMHx: 16:53 None; aj - PSHx: 16:53 Cholecystectomy; aj - Immunization history:: Adult Immunizations up to date. - Social history:: Smoking status: Patient/guardian denies using tobacco. - Ebola Screening: : Patient negative for fever greater than or equal to 101.5 degrees Fahrenheit, and additional compatible Ebola Virus Disease symptoms Patient denies exposure to infectious person Patient denies travel to an Ebola-affected area in the 21 days before illness onset No symptoms or risks identified at this time. - Family history:: not pertinent. - Hospitalizations: : No recent hospitalization is reported. Screenin:30 Abuse screen: Denies threats or abuse. Denies injuries from another. Nutritional iw screening: No deficits noted. Tuberculosis screening: No symptoms or risk factors identified. Fall Risk None identified. Assessment: 17:00 General: Appears in no apparent distress. comfortable, Behavior is calm, cooperative. iw Pain:. Neuro: Level of Consciousness is awake, alert, obeys commands, Oriented to person, place, time, situation, Moves all extremities. Full function. Cardiovascular: Patient's skin is warm and dry. Respiratory: Respiratory effort is even, unlabored, Respiratory pattern is regular. Derm: Skin is intact, is healthy with good turgor. Musculoskeletal: Range of motion: intact in all extremities. Vital Signs: 16:53 BP 130 / 85; Pulse 87; Resp 16; Temp 97.9; Pulse Ox 97% on R/A; Weight 158.76 kg; aj Height 5 ft. 11 in. (180.34 cm); 16:53 Body Mass Index 48.81 (158.76 kg, 180.34 cm) aj ED Course: 16:46 Patient arrived in ED. sb2 16:47 None, None is Private Physician. sb2 16:53 Triage completed. aj 16:53 Arm band placed on left wrist. Patient placed in an exam room. aj 16:55 Roberto Lema MD is Attending Physician. rn 17:00 Patient has correct armband on for positive identification. iw 17:12 Dulce Monroy RN is Primary Nurse. iw 17:30 No provider procedures requiring assistance completed. Patient did not have IV access iw during this emergency room visit. Administered Medications: No medications were administered Outcome: 17:14 Discharge ordered by . rn 17:30 Discharged to home ambulatory. iw 17:30 Condition: good 17:30 Discharge instructions given to patient. 17:32 Patient left the ED. iw Signatures: Marcela Sultana RN RN aj Williams, Irene, RN RN iw Nieto, Roman, MD MD rn Billeau, Sheri sb2
--- NOTE | 2017-10-30 17:14 | EDPHYS ---
Physician Documentation [facility] Name: Anupam Lopez Age: 31 yrs Sex: Male : 1985 Arrival Date: 10/30/2017 Time: 16:46 Bed 19 Private MD: None, None ED Physician Roberto Lema HPI: 10/30 17:03 This 31 yrs old Male presents to ER via Ambulatory with complaints of Ear rn Pain, Sore Throat, Nose Bleed, Nausea/Vomiting/Diarrhea. 17:03 Reports nausea/vomiting/diarrhea for 5 days, now having runny nose, congestion, ear rn pain, hard to hear right ear, and fatigue. No fever. Daughter sick with similar symptoms.. 17:09 Onset: The symptoms/episode began/occurred 5 day(s) ago. Severity of symptoms: At their rn worst the symptoms were mild in the emergency department the symptoms are unchanged. The patient has experienced similar episodes in the past. The patient has been recently seen at the [facility] Emergency Department. Historical: - Allergies: 16:53 No Known Allergies; aj - Home Meds: 16:53 None [Active]; aj - PMHx: 16:53 None; aj - PSHx: 16:53 Cholecystectomy; aj - Immunization history:: Adult Immunizations up to date. - Social history:: Smoking status: Patient/guardian denies using tobacco. - Ebola Screening: : Patient negative for fever greater than or equal to 101.5 degrees Fahrenheit, and additional compatible Ebola Virus Disease symptoms Patient denies exposure to infectious person Patient denies travel to an Ebola-affected area in the 21 days before illness onset No symptoms or risks identified at this time. - Family history:: not pertinent. - Hospitalizations: : No recent hospitalization is reported. ROS: 17:09 Constitutional: Negative for fever, chills, and weight loss, Eyes: Negative for injury, rn pain, redness, and discharge, ENT: + ear pain, sore throat, nosebleed, runny nose Neck: Negative for injury, pain, and swelling, Cardiovascular: Negative for chest pain, palpitations, and edema, Respiratory: Negative for shortness of breath, cough, wheezing, and pleuritic chest pain, Abdomen/GI: Negative for abdominal pain, nausea, vomiting, diarrhea, and constipation, MS/Extremity: Negative for injury and deformity, Skin: Negative for injury, rash, and discoloration, Neuro: Negative for headache, numbness, tingling, and seizure. Exam: 17:09 Constitutional: This is a well developed, well nourished patient who is awake, alert, rn and in no acute distress. Head/Face: Normocephalic, atraumatic. Eyes: Pupils equal round and reactive to light, extra-ocular motions intact. Lids and lashes normal. Conjunctiva and sclera are non-icteric and not injected. Cornea within normal limits. Periorbital areas with no swelling, redness, or edema. ENT: Dry blood bilateral nares, right TM with mild fluid, no erythema or bulge of TM, oropharynx normal. No stridor. Neck: Trachea midline, no thyromegaly or masses palpated, and no cervical lymphadenopathy. Supple, full range of motion without nuchal rigidity, or vertebral point tenderness. No Meningismus. Neuro: Awake and alert, GCS 15, oriented to person, place, time, and situation. Cranial nerves II-XII grossly intact. Motor strength 5/5 in all extremities. Sensory grossly intact. Cerebellar exam normal. Normal gait. Vital Signs: 16:53 BP 130 / 85; Pulse 87; Resp 16; Temp 97.9; Pulse Ox 97% on R/A; Weight 158.76 kg; aj Height 5 ft. 11 in. (180.34 cm); 16:53 Body Mass Index 48.81 (158.76 kg, 180.34 cm) aj MDM: 16:56 Patient medically screened. rn 17:09 Differential Diagnosis viral illness. Data reviewed: vital signs, nurses notes, and as rn a result, I will discharge patient. Counseling: I had a detailed discussion with the patient and/or guardian regarding: the historical points, exam findings, and any diagnostic results supporting the discharge/admit diagnosis, the need for outpatient follow up, to return to the emergency department if symptoms worsen or persist or if there are any questions or concerns that arise at home. Special discussion: I discussed with the patient/guardian in detail that at this point there is no indication for admission to the hospital. It is understood, however, that if the symptoms persist or worsen the patient needs to return immediately for re-evaluation. Based on the history and exam findings, there is no indication for further emergent testing or inpatient evaluation. I discussed with the patient/guardian the need to see the primary care provider for further evaluation of the symptoms. Administered Medications: No medications were administered Disposition: 10/30/17 17:14 Discharged to Home. Impression: Viral upper respiratory infection, Otalgia and effusion of ear. - Condition is Stable. - Discharge Instructions: Nosebleed, Adult, Upper Respiratory Infection, Adult. - Work release form, Medication Reconciliation Form, Thank You Letter, Antibiotic Education, Prescription Opioid Use form. - Follow up: Private Physician; When: As needed; Reason: Recheck today's complaints, Re-evaluation by your physician. - Problem is new. - Symptoms have improved. Signatures: Marcela Sultana RN RN Dulce Soriano RN RN iw Roberto Lema MD MD hand pattern marker: (The following items were deleted from the chart) 17:32 17:14 10/30/2017 17:14 Discharged to Home. Impression: Viral upper respiratory iw infection; Otalgia and effusion of ear. Condition is Stable. Forms are Medication Reconciliation Form, Thank You Letter, Antibiotic Education, Prescription Opioid Use. Follow up: Private Physician; When: As needed; Reason: Recheck today's complaints, Re-evaluation by your physician. Problem is new. Symptoms have improved. rn
== END 2017-10-30 17:32 | disposition home or self-care (01) ==
LOC: ER 16:43
DX: J06.9 Acute upper respiratory infection, unspecified (principal); H92.01 Otalgia, right ear
CPT/HCPCS: 99281